=== PATIENT | female | born 1990 | race Asian ===

== ENCOUNTER 2021-06-24 05:38 | Observation (INO) | payer OTHER, SELFPAY ==
[~2021-06-24] VITALS: Ht 157.5 cm; Wt 68.0 kg
[2021-06-24] MEDS ORDERED: TERBUTALINE SULFATE 1 MG/ML VIAL ONE (06:15)
[2021-06-24] MEDS ORDERED: TERBUTALINE SULFATE 1 MG/ML VIAL SUBCUT PRN (06:45)
[2021-06-24] MEDS ORDERED: BETAMET ACET/BETAMET NA PH 30 MG/5 ML VIAL IM ONE ×2 (07:15→07:30)
[2021-06-24] MEDS: LR 1,000 ML IV SCH ×2 (08:23→16:11)
[2021-06-25] MEDS: LR 1,000 ML IV SCH
[2021-06-25] MEDS ORDERED: BETAMET ACET/BETAMET NA PH 30 MG/5 ML VIAL IM ONE (07:30)
== END 2021-06-25 09:37 | disposition home or self-care (01) ==
LOC: SPU 05:38
PROVIDERS: ADMIT Obstetrics & Gynecology; ATTEND Obstetrics & Gynecology
DX: O62.9 Abnormality of forces of labor, unspecified (principal); Z20.822 Contact with and (suspected) exposure to COVID-19; Z3A.35 35 weeks gestation of pregnancy; Z88.0 Allergy status to penicillin
CPT/HCPCS: 36415; 59025; 81002; 87426; 96360; 96361 ×2; 96372 ×2; G0378 ×2; J0702; J3105; 59899

== ENCOUNTER 2021-06-30 12:16 | Observation (INO) | payer OTHER ==
[~2021-06-30] VITALS: Ht 157.5 cm; Wt 68.0 kg
== END 2021-06-30 15:25 | disposition home or self-care (01) ==
LOC: SPU 12:16 → INTOOBSV 12:16
PROVIDERS: ADMIT Obstetrics & Gynecology; ATTEND Obstetrics & Gynecology
DX: O36.8130 Decreased fetal movements, third trimester, not applicable or unspecified (principal); Z3A.36 36 weeks gestation of pregnancy; Z88.0 Allergy status to penicillin
CPT/HCPCS: 59025; 76819; 81002; G0378